=== PATIENT | male | born 1965 | race Caucasian/White ===

== ENCOUNTER 2018-11-07 14:04 | Emergency (ER) | payer OTHER ==
[~2018-11-07] VITALS: Ht 182.9 cm; Wt 101.5 kg
[~2018-11-07 14:04] MED LIST: CLARITIN D TAB1 TAB PO; CLARITIN-D 10 M1 T24 PO; IMURAN50 MG PO; PENTASA500 MG PO; PERCOCET 325 MG1 TA2 PO; PRIL40 PO; QUESTRAN1 GM PO; ZESTRIL30 MG PO; [UNRECOGNIZED DRUG - OTHER]
[2018-11-07 14:10] VITALS: TEMP 98.6
[2018-11-07 14:57] LABS: BASO % 0.5 % (0.0-2.0); EOS % 0.3 % (0-4.0); GRAN # 4.2 (1.4-6.5); GRAN % 72.6 % (42.2-75.2); HEMATOCRIT 41.9 % (42.0-52.0); HEMOGLOBIN 14.7 g/dl (13.5-18.0); LYMPH # 0.9 (1.2-3.4); MEAN CELL VOLUME 94 fl (80.0-100.0); MEAN CORPUSCULAR HEMOGLOBIN 33 pg (27.0-31.0); MEAN CORPUSCULAR HGB CONC 35 g/dl (33.0-37.0); MEAN PLATELET VOLUME 8.6 fl (7.4-10.4); MONO # 0.6 (0.1-0.6); MONO % 10.3 % (1.7-9.3); PLATELET COUNT 231 K/mm3 (130-400); RED BLOOD COUNT 4.45 M/mm3 (4.20-5.60); REDCELL DISTRIBUTION WIDTH-CV 13.3 % (11.5-14.5)
[2018-11-07 15:04] LABS: ALANINE AMINOTRANSFERASE 65 U/L (21-72); ALBUMIN 4.5 gm/dL (3.5-5.0); ALKALINE PHOSPHATASE 54 U/L (50-136); ANION GAP 11 mmol/L (7-16); AST,SGOT 39 U/L (15-37); BILIRUBIN,TOTAL 0.9 mg/dL (0.0-1.0); BLOOD UREA NITROGEN 11 mg/dL (9-20); CALCIUM 9.8 mg/dL (8.4-10.2); CARBON DIOXIDE 28 mmol/L (22-30); CHLORIDE 96 mmol/L (98-107); CREATININE, serum 0.69 mg/dL (0.66-1.25); GLUCOSE 104 mg/dL (74-106); LIPASE 151 U/L (23-300); POTASSIUM 3.9 mmol/L (3.4-5.0); SODIUM 135 mmol/L (137-145); TOTAL PROTEIN 8.1 gm/dL (6.4-8.2)
[2018-11-07 15:08] LABS: C-REACTIVE PROTEIN < 0.5 mg/dL (0.0-0.9)
[2018-11-07 15:15] LABS: TROPONIN-I < 0.012 ng/mL (0.000-0.035)
[2018-11-07] MEDS ORDERED: ZITHROMAX 250M250 MG PO (17:25)
[2018-11-07 17:33] VITALS: BP 142/90; PULSE 68
== END 2018-11-07 17:40 | disposition home or self-care (01) ==
LOC: COL.ER 14:04
PROVIDERS: Emergency Medicine
DX: J18.8 Other pneumonia, unspecified organism (principal); I10 Essential (primary) hypertension; K50.90 Crohn's disease, unspecified, without complications
CPT/HCPCS: Q9967

== ENCOUNTER → 2019-11-20 | Outpatient (CLI) | payer OTHER ==
[~2019-11-20] MED LIST changes: +ZITHROMAX 250M250 MG PO
== END ==
LOC: COL.RAD 08:03
DX: K21.9 Gastro-esophageal reflux disease without esophagitis (principal); K76.0 Fatty (change of) liver, not elsewhere classified; K50.90 Crohn's disease, unspecified, without complications

== ENCOUNTER → 2020-05-01 | Outpatient (CLI) | payer OTHER | LOC: ZCOL.LAB 15:49 | DX: Z20.828 Contact with and (suspected) exposure to other viral communicable diseases (principal) ==